=== PATIENT | female | born 1975 | race African-American/Black ===

== ENCOUNTER → 2017-10-16 | Day surgery (SDC) | payer OTHER ==
[~2017-10-16] MED LIST: DEXAMETHASONE SOD PHOS 20 MG/5 ML VIAL.; ESMOLOL 100 MG/10 ML VIAL. IV; FAMOTIDINE 20 MG/2 ML VIAL; LIDOCAINE 1% PF 2 ML VIAL. ID; LIDOCAINE 2% PF Vial for OR 5 ML VIAL.; MORPHINE SULFATE 2 MG/ML DISP.SYRIN. IV; ONDANSETRON PF 4 MG/2 ML VIAL.; PROCHLORPERAZINE 10 MG/2 ML VIAL. IV; PROPOFOL 20 ML IV; SEVOFLURANE 31 TO 60 MINUTES. IH; SUCCINYLCHOLINE 200 MG/10 ML VIAL.; fentaNYL PF VIAL 100 MCG/2 ML VIAL; fentaNYL PF VIAL 100 MCG/2 ML VIAL IV; traMADol 50 MG TABLET PO
[2017-10-16 06:52] LABS: POC GLUCOSE 101 mg/dL (70-99)
[2017-10-16] MEDS: IV RINGERS,LACTATED 1000ML 1,000 ML IV (07:08)
[2017-10-16] MEDS: SCOPOLAMINE 1.5MG PATCH. TD (07:12)
[2017-10-16] MEDS: BUPIVACAINE-EPI 0.25%-1:200000 50 ML VIAL. (08:29)
[2017-10-16 09:08] LABS: POC GLUCOSE 99 mg/dL (70-99)
[2017-10-16] MEDS: fentaNYL PF VIAL 100 MCG/2 ML VIAL IV (09:29)
[2017-10-16] MEDS: ONDANSETRON PF 4 MG/2 ML VIAL. IV (10:26)
== END | disposition home or self-care (01) ==
LOC: SURG 06:24
DX: L72.0 Epidermal cyst (principal); E11.9 Type 2 diabetes mellitus without complications; I10 Essential (primary) hypertension; J45.909 Unspecified asthma, uncomplicated; E66.9 Obesity, unspecified; Z90.710 Acquired absence of both cervix and uterus; Z90.722 Acquired absence of ovaries, bilateral; Z72.89 Other problems related to lifestyle; Z87.01 Personal history of pneumonia (recurrent); Z87.440 Personal history of urinary (tract) infections; Z98.890 Other specified postprocedural states
CPT/HCPCS: 11406; 82962; 87071; 87075; 88304; A7015; J0330; J1100; J1956; J2001; J2405; J2704; J3010; J3490; S0028

== ENCOUNTER → 2019-01-09 | Outpatient (CLI) | payer OTHER ==
[2017-10-16 11:15] VITALS: BP 169/77
[~2019-01-09] MED LIST changes: +BENA1TAB6 PO; +CHOL2000 PO; +CLIN150C14 PO; -DEXAMETHASONE SOD PHOS 20 MG/5 ML VIAL.; -ESMOLOL 100 MG/10 ML VIAL. IV; -FAMOTIDINE 20 MG/2 ML VIAL; +FLUT1DIS IH; +INSU100I17 SQ; +INSU100I30 SQ; -LIDOCAINE 1% PF 2 ML VIAL. ID; -LIDOCAINE 2% PF Vial for OR 5 ML VIAL.; +LIRA0.6P2 SQ; +METF500T16 PO; -MORPHINE SULFATE 2 MG/ML DISP.SYRIN. IV; -ONDANSETRON PF 4 MG/2 ML VIAL.; -PROCHLORPERAZINE 10 MG/2 ML VIAL. IV; -PROPOFOL 20 ML IV; +PROVENTIL HFA6.7 GM IH; -SEVOFLURANE 31 TO 60 MINUTES. IH; -SUCCINYLCHOLINE 200 MG/10 ML VIAL.; +TRAM50TA PO; -fentaNYL PF VIAL 100 MCG/2 ML VIAL; -fentaNYL PF VIAL 100 MCG/2 ML VIAL IV; -traMADol 50 MG TABLET PO
--- NOTE | 2019-01-09 10:46 | RAD ---
EXAM: Right lower extremity venous Doppler sonogram. HISTORY: Pain and swelling. TECHNIQUE: Yen scale and color Doppler sonographic evaluation of the right lower extremity veins with spectral waveform analysis was performed. FINDINGS: There is normal color flow, normal compressibility and there are normal spectral waveforms in the common femoral, superficial femoral, popliteal, posterior tibial and greater saphenous veins. No fluid collection or mass is seen within the posterior distal right calf at the site of reported. IMPRESSION: No Doppler evidence of lower extremity deep venous thrombosis. Electronically signed by: Danni Moore MD (01/09/2019 10:43 AM) [place] [id number]
== END | disposition home or self-care (01) ==
LOC: US 09:48
PROVIDERS: ATTEND Nurse Practitioner
DX: S80.11XA Contusion of right lower leg, initial encounter (principal); M79.604 Pain in right leg; X58.XXXA Exposure to other specified factors, initial encounter; Y93.89 Activity, other specified; Y92.89 Other specified places as the place of occurrence of the external cause; Y99.8 Other external cause status
CPT/HCPCS: 93971

== ENCOUNTER → 2019-03-13 | Outpatient (CLI) | payer OTHER ==
[2017-10-16 11:15] VITALS: BP 169/77
[~2019-03-13] MED LIST changes: +CONTRAST GIVEN. MC PRN; +IOHEXOL 240 MG/ML 50ML VIAL. PO ONE; +IOHEXOL 300 MG/ML 100ML VIAL. IV ONE
--- NOTE | 2019-03-13 16:39 | KCIC ---
CT abdomen pelvis with contrast dated 03/13/2019. No comparison available. Clinical data indication: Left lower quadrant pain. TECHNIQUE: Continues axial imaging of the abdomen and pelvis performed after the administration of 100 cc Omnipaque 300. One or more of the following individualized dose reduction techniques were utilized for this examination: 1. Automated exposure control 2. Adjustment of the mA and/or kV according to patient size 3. Use of iterative reconstruction technique. FINDINGS: Limited images of lung bases are clear. Heart size is within normal limits. No pleural or pericardial effusion. Liver is of diffuse low density compatible with mild fatty infiltration. No apparent mass. Blurred tree normal in caliber. Gallbladder unremarkable. Spleen, pancreas, adrenal glands and kidneys are unremarkable. No hydronephrosis. Partially opacified GI tract is normal in caliber and contour. No focal bowel wall thickening. No inflammatory stranding in the mesentery. The appendix is normal in caliber. No ascites or lymphadenopathy. Images of pelvis show nondistended urinary bladder. The uterus is surgically absent. No free pelvic fluid or pelvic lymphadenopathy. Bone windows show no acute findings. Multilevel lumbar spondylosis. IMPRESSION: 1. No acute abnormality of abdomen or pelvis. Normal appendix. 2. Mild fatty infiltration of the liver. 3. Status post hysterectomy. Electronically signed by: Lamont Griggs MD (03/13/2019 4:36 PM) [id number]
== END | disposition home or self-care (01) ==
LOC: KCIC CT 11:59
PROVIDERS: ATTEND Family Medicine
DX: K76.0 Fatty (change of) liver, not elsewhere classified (principal); M47.816 Spondylosis without myelopathy or radiculopathy, lumbar region; I10 Essential (primary) hypertension; E11.9 Type 2 diabetes mellitus without complications; J45.909 Unspecified asthma, uncomplicated; Z90.710 Acquired absence of both cervix and uterus
CPT/HCPCS: 74177; 82565; Q9966; Q9967

== ENCOUNTER → 2020-05-13 | Outpatient (CLI) | payer OTHER ==
[2017-10-16 11:15] VITALS: BP 169/77
[~2020-05-13] MED LIST changes: -CLIN150C14 PO; +CLIN150C15 PO; -CONTRAST GIVEN. MC PRN; -IOHEXOL 240 MG/ML 50ML VIAL. PO ONE; -IOHEXOL 300 MG/ML 100ML VIAL. IV ONE
--- NOTE | 2020-05-13 18:43 | KCIC ---
EXAM: MRI Right KNEE DATE: 05/13/2020 1:20 PM CLINICAL INDICATION: RIGHT KNEE MMT-Continued pain, mostly medially. COMPARISON: None. TECHNIQUE: Multiplanar, multisequence MRI of the Right knee was performed without contrast. Examinati on is limited given inability to use dedicated knee coil. FINDINGS: No knee joint effusion. Small Herrera's cyst. Edema is seen tracking anteromedially along the proximal tibia along the pes anserine tendons. Mild increased signal about the MCL. The femoral attachment is incompletely seen suggesting intermedi ate grade tear/sprain. The fibular collateral ligament, biceps femoris and IT band are intact. Popliteus is normal in signal and morphology, intact. Medial meniscus: Blunting of the body and posterior horn medial meniscus likely radial tear or from p rior meniscectomy change. Lateral meniscus: Intact Extensor mechanism is intact. Mild chondral thinning at the lateral patellar facet. Mild chondral thi nning is also seen at the medial femoral condyle. No fracture or osteonecrosis. Tricompartmental osteophytes. Relative decreased T1 marrow signal which remains hyperintense to the muscle, may be seen with red marrow reconversion. IMPRESSION: 1. Intermediate grade sprain/partial tear at the femoral attachment of the MCL. 2. Edema tracking anteromedially along the pes anserine tendons may represent reactive signal change s or pes anserine bursitis. 3. Free edge blunting of the body and posterior horn medial meniscus likely radial tear or from prio r meniscectomy change. 4. Right knee joint osteoarthritis Electronically signed by: Koffi Domingo MD (05/13/2020 6:41 PM) [facility]
== END ==
LOC: KCIC MRI 13:07
PROVIDERS: ATTEND Physician Assistant
DX: S83.241A Other tear of medial meniscus, current injury, right knee, initial encounter (principal); M17.11 Unilateral primary osteoarthritis, right knee; M71.21 Synovial cyst of popliteal space [Baker], right knee; X58.XXXA Exposure to other specified factors, initial encounter; Y92.89 Other specified places as the place of occurrence of the external cause; Y93.89 Activity, other specified; Y99.8 Other external cause status
CPT/HCPCS: 73721

== ENCOUNTER → 2021-04-01 | Outpatient (CLI) | payer OTHER ==
[2017-10-16 11:15] VITALS: BP 169/77
[~2021-04-01] MED LIST changes: -CLIN150C15 PO; +CLIN150C16 PO
--- NOTE | 2021-04-01 11:04 | KCIC ---
BILATERAL DIAGNOSTIC MAMMOGRAPHY AND LEFT BREAST ULTRASOUND History: Left breast pain and left breast lumps x1 month. Patient notes lump at the 6:30 position 6 c m from the nipple. Patient's physician palpated a lump at the 2:00 position 8 cm from the nipple. Eula menchaca has pain from the 4:00 to 8:00 position. Comparison: Bilateral mammogram 05/18/2015. Technique: Bilateral digital mammogram views were obtained. Findings: Breast Tissue Density A : The breasts are almost entirely fatty. There are bilateral benign calcifications. There are no dominant masses, suspicious microcalcifications or architectural distortion. Real-time ultrasound imaging of the left breast is performed at the areas of concern. No solid mass or architectural distortion or abnormal shadowing is identified. There are normal-appea ring fibroglandular tissues. There are no abnormal axillary lymph nodes. IMPRESSION: 1. No mammographic evidence of malignancy. 2. Left breast ultrasound is negative. 3. Recommend routine mammogram screening. BI-RADS category 2: Benign findings. The images were reviewed with computer-aided detection. Patient information is entered into the reminder system with a target due date for the next screening mammogram. Mammography is the most sensitive method for finding small breast cancers, but it does not detect the m all and is not a substitute for careful clinical examination. A negative mammogram does not negate a clinically suspicious finding and should not result in delay in biopsying a clinically suspicious a bnormality. "Our facility is accredited by the [employer] Mammography Program." Electronically signed by: Markus Coon MD (04/01/2021 11:01 AM) [id number]
== END ==
LOC: KCIC MAMMO 09:31
PROVIDERS: ATTEND Nurse Practitioner Family
DX: N64.4 Mastodynia (principal)
CPT/HCPCS: 76641; 77066

== ENCOUNTER → 2021-04-28 | Outpatient (CLI) | payer OTHER ==
[2017-10-16 11:15] VITALS: BP 169/77
--- NOTE | 2021-04-28 15:54 | KCIC ---
3 views left knee 04/28/2021 12:35 PM Indication: Reason: LEFT ANKLE PAIN/KNEE PAIN/CONTUSION S/P FALL YESTERDAY Comparison: None Findings: There is no acute fracture or dislocation. Mild degenerative medial and lateral compartment osteophytosis noted. Articular surfaces are uninterupted and smooth. Soft tissues are unremarkable. Impression: No evidence of acute osseous abnormality. Electronically signed by: Ritchie Batres MD (04/28/2021 3:51 PM) [id number]
--- NOTE | 2021-04-28 15:55 | KCIC ---
3 views left ankle 04/28/2021 12:35 PM Indication: Reason: LEFT ANKLE PAIN/KNEE PAIN/CONTUSION S/P FALL Comparison: None Findings: There is no acute fracture or dislocation. Articular surfaces are uninterupted and smooth. Soft tissues are unremarkable. Impression: No evidence of acute osseous abnormality. Electronically signed by: Ritchie Batres MD (04/28/2021 3:52 PM) [id number]
== END ==
LOC: KCIC 12:32
PROVIDERS: ATTEND Family Medicine
DX: M25.762 Osteophyte, left knee (principal); M25.572 Pain in left ankle and joints of left foot; W19.XXXA Unspecified fall, initial encounter
CPT/HCPCS: 73562; 73610